=== PATIENT | female | born 1955 | race Caucasian/White ===

== ENCOUNTER 2017-10-25 12:35 | Emergency (ER) | payer OTHER ==
[~2017-10-25] VITALS: Ht 154.9 cm; Wt 79.4 kg
[2017-10-25 13:41] LABS: ABSOLUTE BASOPHIL COUNT 0.1 /CUMM (0.0-0.2); ABSOLUTE EOSINOPHIL COUNT 0.1 /CUMM (0.0-0.7); ABSOLUTE GRANULOCYTE CT 4.3 /CUMM (1.4-6.5); ABSOLUTE LYMPH COUNT 1.3 /CUMM (1.2-3.4); ABSOLUTE MONOCYTE COUNT 0.4 /CUMM (0.10-0.60); BASOPHIL % 1.3 % (0.0-2.0); EOSINOPHIL % 1.8 % (0-5); GRANULOCYTE % 69.4 % (42.2-75.2); HEMATOCRIT 41.6 % (37-47); MEAN CORPUSCULAR HGB 30.4 PG (27.0-31.0); MEAN CORPUSCULAR HGB CONC 34.6 G/DL (33.0-37.0); MEAN CORPUSCULAR VOLUME 87.8 FL (81.0-99.0); MEAN PLATELET VOLUME 8.6 FL (7.4-10.4); PLATELET COUNT 323 /CUMM (130-400); RBC DISTRIBUTION WIDTH 13.6 % (11.5-14.5); RED BLOOD CELL CT 4.74 /CUMM (4.20-5.40); WHITE BLOOD CELL COUNT 6.1 /CUMM (4.8-10.8)
--- NOTE | 2017-10-25 14:17 | CT SCAN REPORT ---
EXAMINATION: CT HEAD WITHOUT CONTRAST CLINICAL INFORMATION: Migraine, loss of vision and lightheadedness. COMPARISON: MRI scan of the brain 08/02/[address] scan of the head 04/04/2012. TECHNIQUE: Contiguous axial imaging was performed from the skull base to vertex without intravenous administration of contrast. DLP: 605.73 mGy-cm FINDINGS: There is no evidence of acute intracranial hemorrhage or territorial infarction. No abnormal mass effect or midline shift is seen. Neville to white matter differentiation is well preserved. No extra-axial fluid collections are identified. The ventricles are normal in size. There is no abnormal attenuation within the brain parenchyma. The right choroid fissure cyst is redemonstrated. The osseous structures and soft tissues are normal. The frontal sinuses are not pneumatized. The mastoid air cells and visualized other paranasal sinuses are well-aerated. IMPRESSION: 1. There are no acute bleeds or territorial infarcts. 2. There are no masses, fluid collections and there is no paranasal sinus disease.
--- NOTE | 2017-10-25 16:51 | ED HEADACHE COMPLAINT ---
History of Present Illness General Chief Complaint: Syncope and Near-Syncope Stated Complaint: BIBA NEAR SYNCOPE Source: patient Exam Limitations: no limitations Vital Signs & Intake/Output Vital Signs & Intake/Output Vital Signs Date Time Temp Pulse Resp B/P B/P Pulse O2 O2 Flow FiO2 Mean Ox Delivery Rate 10/25 1844 98.0 98 19 136/80 98 Room Air 10/25 1700 Room Air 10/25 1659 97.6 107 18 140/76 96 Room Air 10/25 1241 98.4 96 20 119/80 98 Room Air Allergies Coded Allergies: MDX - LAILA Inhibitor (LAILA INHIBITOR) (DAUGHTER HAD ANAPHYLAXIS, PT HAS NEVER TAKEN BEFORE. 09/15/11) MDX - Acetaminophen (From PERCOCET) (UNKNOWN 04/04/12) MDX - Codeine (CODEINE) (UNKNOWN 04/04/12) MDX - Erythromycin (ERYTHROMYCIN) (UNKNOWN 04/04/12) MDX - Oxycodone (From PERCOCET) (UNKNOWN 04/04/12) MDX - Pitavastatin (Pitavastatin) (UNKNOWN 04/04/12) MDX - Sumatriptan (From IMITREX NS SPR 20 MG) (UNKNOWN 04/04/12) Uncoded Allergies: STATINS (07/02/11) Triage Note: PT BIBA TO TRIAGE FOR C/O HEADACHE WITH AURA. H/O MIGRAINES. STATES WHILE AT WORK SHE FELT FAINT, FELL AGAINST THE WALL AND THEN SLID TO THE FLOOR. DENIES ANY LOC. STATES AT THAT TIME SHE LOST HER PERIPHERAL VISION. CURRENTLY DENIES ANY PAIN. Triage Nurses Notes Reviewed? yes Onset: Abrupt Duration: better Timing: single episode today Quality/Severity: moderate Severity Numbers: 5 No Modifying Factors: none HPI: Patient is a 62-year-old female with a past medical history of hypertension,M Dionne's and migraines who presents emergency room saying that yesterday patient had a migraine typical headache which resolved after 30 minutes with Maxalt however today patient woke up and her normal state of health over while walking at work patient had acute onset of lightheaded dizziness and presyncope symptoms with mild or were patient states that she fell to the wall sliding her back down to the ground however patient denies any loss of consciousness AURA still persisted and patient had blurred vision and bilateral tunnel vision in which patient was brought in by ambulance, Patient has been complaining of intermittent headaches since of her headache on evaluation has resolved Patient denies any fever chills Patient states that her vision is back to normal Denies any chest pain arm pain jaw pain nausea vomiting leg swelling slurred speech and facial droop Past History Travel History Traveled to [place] past 21 day No Medical History Any Pertinent Medical History? see below for history Neurological: migraine, seizure, lupus Cardiovascular: hypertension Endocrine: hypothyroidism Surgical History Surgical History: non-contributory Psychosocial History What is your primary language Maldivian Tobacco Use: Never used ETOH Use: denies use Illicit Drug Use: denies illicit drug use Family History Hx Contributory? No Review of Systems Review of Systems Constitutional: Reports: no symptoms, weakness. Eyes: Reports: see HPI, blurred vision, tunnel vision. Ears, Nose, Throat, Mouth: Reports: no symptoms. Respiratory: Reports: no symptoms. Cardiovascular: Reports: see HPI. Gastrointestinal/Abdominal: Reports: no symptoms. Genitourinary: Reports: no symptoms. Musculoskeletal: Reports: no symptoms. Skin: Reports: no symptoms. Neurological/Psychological: Reports: see HPI, headache. Hematologic/Endocrine: Reports: no symptoms. Endocrine: Reports: no symptoms. Immunologic/Allergic: Reports: no symptoms. All Other Systems: Reviewed and Negative Physical Exam Physical Exam General Appearance: no apparent distress, alert, comfortable Head: atraumatic Eyes: Bilateral: normal appearance, PERRL, EOMI. Ears, Nose, Throat: normal pharynx, normal ENT inspection, hearing grossly normal Neck: normal inspection, supple Respiratory: normal breath sounds, chest non-tender, no respiratory distress Cardiovascular: regular rate/rhythm Gastrointestinal: normal bowel sounds, soft, non-tender Extremities: normal inspection, normal capillary refill, normal range of motion Cranial Nerves: normal hearing, normal speech, PERRL Skin: intact, normal color, warm/dry Core Measures Sepsis Present: No Sepsis Focused Exam Completed? No Progress Differential Diagnosis: carotid dissection, cav sinus thromb, cluster LYLES, encephalitis, IC mass/tumor, intracranial Hem., meningitis, migraine LYLES, musculoskeletal pain, post LP headache, sinusitis, SSS thrombosis, subarach. Hem., tension LYLES, temporal arteritis, TMJ syndrome, viral cephalgia Plan of Care: Orders Procedure Date/time Status Telemetry/Fitness Sales Associate 10/25 1705 Active Add-on Test (ER Only) 10/25 1701 Active TROPONIN LEVEL 10/25 1701 Complete EKG 02/22 1702 Active THYROID STIMULATING HORMONE 10/25 1326 Complete THYROXINE 10/25 1326 Complete TROPONIN LEVEL 10/25 1314 Complete COMPREHENSIVE METABOLIC PANEL 10/25 1314 Complete CBC WITHOUT DIFFERENTIAL 10/25 1314 Complete EKG 10/25 1247 Active Laboratory Tests 10/25/17 1724: Troponin I 0.02 10/25/17 1326: Anion Gap 14, Estimated GFR > 60, BUN/Creatinine Ratio 22.5, Glucose 95, Calcium 10.1, Total Bilirubin 0.5, AST 30, ALT 18, Alkaline Phosphatase 86, Troponin I 0.01, Total Protein 7.6, Albumin 4.8, Globulin 2.8, Albumin/Globulin Ratio 1.7, TSH 3.440, Thyroxine (T4) 9.1, CBC w Diff NO MAN DIFF REQ, RBC 4.74, MCV 87.8, MCH 30.4, MCHC 34.6, RDW 13.6, MPV 8.6, Gran % 69.4, Lymphocytes % 20.7, Monocytes % 6.8, Eosinophils % 1.8, Basophils % 1.3, Absolute Granulocytes 4.3, Absolute Lymphocytes 1.3, Absolute Monocytes 0.4, Absolute Eosinophils 0.1, Absolute Basophils 0.1 Patient on initial presentation was in no apparent distress and has unremarkable physical exam CT scan was resulted discussed results with patient with unremarkable findings initial blood work and EKG was unremarkable, patient received 4 hour interval of repeat EKG and troponin having unremarkable findings , upon discharge patient looks well asymptomatic normal steady gait patient has a appointment tomorrow with cardiology established prior to arrival was strongly advised to follow-up. Diagnostic Imaging: Viewed by Me: CT Scan. Radiology Impression: no acute abnormality, no fracture Initial ED EKG: MULTIPLE ARTIFACT, 91 BPM Repeat EKG: unchanged Comments: PATIENT: JOS CHAMPAGNE PRESENT AGE: 62 PATIENT ACCOUNT NO: [id number] : 54 LOCATION: [facility] ORDERING PHYSICIAN: Otis TOVAR SERVICE DATE: 10/25/17 EXAM TYPE: CAT - CT HEAD WO IV CONTRAST EXAMINATION: CT HEAD WITHOUT CONTRAST CLINICAL INFORMATION: Migraine, loss of vision and lightheadedness. COMPARISON: MRI scan of the brain 08/02/[address] scan of the head 04/04/2012. TECHNIQUE: Contiguous axial imaging was performed from the skull base to vertex without intravenous administration of contrast. DLP: 605.73 mGy-cm FINDINGS: There is no evidence of acute intracranial hemorrhage or territorial infarction. No abnormal mass effect or midline shift is seen. Neville to white matter differentiation is well preserved. No extra-axial fluid collections are identified. The ventricles are normal in size. There is no abnormal attenuation within the brain parenchyma. The right choroid fissure cyst is redemonstrated. The osseous structures and soft tissues are normal. The frontal sinuses are not pneumatized. The mastoid air cells and visualized other paranasal sinuses are well-aerated. IMPRESSION: 1. There are no acute bleeds or territorial infarcts. 2. There are no masses, fluid collections and there is no paranasal sinus disease. DICTATED BY: Liborio Arias MD DATE/TIME DICTATED:10/25/171407 NAVAL SCIENCE TEACHER:ASHLY DATE/TIME TRANSCRIBED:10/25/171407 CONFIDENTIAL, DO NOT COPY WITHOU Departure Departure Disposition: HOME OR SELF CARE Condition: Stable Clinical Impression Primary Impression: Lightheaded Secondary Impressions: Headache, Palpitations Referrals: Lisa ZIMMERMAN,Traci (PCP/Family) Additional Instructions: As discussed continue home medications as directed tomorrow follow-up with your established textile conversion manager APPOINTMENT- Dr. ARIAS, if symptoms worsen return to the emergency room Departure Forms: Customer Survey General Discharge Information
[2017-10-25 18:44] VITALS: BP 136/80
== END 2017-10-25 18:44 ==
LOC: ERH 12:35
PROVIDERS: Physician Assistant
DX: R00.2 Palpitations (principal); R51 Headache; R42 Dizziness and giddiness
CPT/HCPCS: 93005; 93010